=== PATIENT | female | born 2000 | race Caucasian/White ===

== ENCOUNTER 2022-11-18 16:39 | Emergency (ER) | payer BC ==
[2022-11-18 18:10] LABS: BHCG - Serum Negative (NEGATIVE); Pregs Control Background? CLEAR/WHITE (CLR/WHITE); Pregs Control Bar Appear? YES (CONTROL BAR)
[2022-11-18] MEDS ORDERED: Morphine 4 MG/ML VIAL ONE (18:11)
[2022-11-18] MEDS ORDERED: Acetaminophen 500 MG TAB ONE (18:11)
[2022-11-18 18:14] LABS: #Monocytes 0.7 10x3/uL (0.0-1.1); #Neutrophils 11.6 10x3/uL (1.5-8.4); %Basophils 0.2 % (0.0-2.0); %Eosinophils 0.3 % (0.0-6.0); %Lymphocytes 11.6 % (18.0-47.0); %Monocytes 4.9 % (0.0-10.0); %Neutrophils 82.6 % (40.0-75.0); Hemoglobin 12.6 g/dL (12.0-15.5); Mean Corpuscular HGB CONC 32.9 g/dL (32.0-36.0); Mean Corpuscular Hemoglobin 27.8 pg (27.0-33.0); Mean Corpuscular Volume 84.5 fl (81.6-98.3); Mean Platelet Volume 10.5 fl (7.4-10.4); Platelet Count 193 10x3/uL (150-450); RBC Distribution Width 13.2 % (11.5-14.5); Red Blood Cell (RBC) Count 4.53 10x6/uL (3.90-5.03); White Blood Cell (WBC) Count 14.1 10x3/uL (3.5-10.5)
[2022-11-18 18:17] LABS: ALT (SGPT) 30 U/L (8-55); AST (SGOT) 23 U/L (5-34); Albumin 4.1 g/dL (3.5-5.0); Alkaline Phosphatase 78 U/L (40-110); Anion Gap 14 mmol/L (10-20); BUN (Urea Nitrogen) 8 mg/dL (7.0-18.7); Bilirubin, Total 0.5 mg/dL (0.2-1.2); Calc. Creatinine Clearance 0 mL/min (70-130); Calcium 9.2 mg/dL (7.8-10.44); Carbon Dioxide 23 mmol/L (22-29); Chloride 100 mmol/L (98-107); Estimated GFR 121; Globulin 3.5 g/dL (2.4-3.5); Glucose 91 mg/dL (70-105); Lipase 15 U/L (8-78); Potassium 4.1 mmol/L (3.5-5.1); Protein, Total 7.6 g/dL (6.0-8.3); Sodium 133 mmol/L (136-145)
[2022-11-18 18:37] LABS: Bilirubin Neg (Negative); Blood, Urine 250 (Negative); Clarity Clear (Clear); Glucose, Urine (Dipstick) Normal (Negative); Ketone, Urine Negative (Negative); Leukocyte Negative (Negative); Nitrite Negative (Negative); Protein, Urine (Dipstick) Negative (Neg-Trace); Urobilinogen Normal mg/dL (Less than 2)
[2022-11-18 18:38] LABS: Platelet Morphology Comment Appears Decreased; RBC Morphology Normal
[2022-11-18 19:00] LABS: Bacteria/HPF 1+ HPF (None Seen); Squamous Epithelial 0-3 HPF (0-3)
== END 2022-11-18 19:02 | disposition home or self-care (01) ==
LOC: CSHERS 16:39
DX: R10.10 Upper abdominal pain, unspecified (principal); D72.829 Elevated white blood cell count, unspecified; E66.9 Obesity, unspecified
CPT/HCPCS: 74177; 80053; 81003; 81015; 83690; 84703; 85025; 96374; J2270

== ENCOUNTER 2023-01-17 12:16 | Outpatient (CLI) | payer BC | END 2023-01-17 12:17 | disposition home or self-care (01) | LOC: CSHRAD 12:16 | PROVIDERS: ATTEND Internal Medicine Rheumatology | DX: M46.1 Sacroiliitis, not elsewhere classified (principal); M54.89 Other dorsalgia | CPT/HCPCS: 72202 ==

== ENCOUNTER 2023-04-27 12:46 | Outpatient (CLI) | payer BC ==
[~2023-04-27 12:46] MED LIST: Magnevist 469MG/ML 20 ML VIAL ONE
== END 2023-04-27 12:47 | disposition home or self-care (01) ==
LOC: CSHMRI 12:46
PROVIDERS: ATTEND Internal Medicine Rheumatology
DX: M47.27 Other spondylosis with radiculopathy, lumbosacral region (principal); M46.1 Sacroiliitis, not elsewhere classified; M54.89 Other dorsalgia; Q76.49 Other congenital malformations of spine, not associated with scoliosis; R93.6 Abnormal findings on diagnostic imaging of limbs
CPT/HCPCS: 72148; 72197; A9579